=== PATIENT | female | born 2000 | race Two or more races ===

== ENCOUNTER 2019-09-19 18:33 | Emergency (ER) | payer OTHER ==
[~2019-09-19] VITALS: Ht 170.2 cm; Wt 81.6 kg
[2019-09-19 18:50] VITALS: BP 150/86
[2019-09-19] MEDS ORDERED: ACETAMINOPHEN 500 MG TABLET PO ONE (19:30)
[2019-09-19] MEDS ORDERED: AMOXICILLIN/K CLAV 875/125MG TABLET. PO ONE (19:30)
[2019-09-19] MEDS ORDERED: AMOX1TAB61 PO (19:45)
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
== END 2019-09-19 19:57 | disposition left against medical advice (07) ==
LOC: EEVIPCON 18:33 → ER 18:33
DX: O9A.211 Injury, poisoning and certain other consequences of external causes complicating pregnancy, first trimester (principal); S41.051A Open bite of right shoulder, initial encounter; S39.91XA Unspecified injury of abdomen, initial encounter; Z3A.12 12 weeks gestation of pregnancy; Y04.1XXA Assault by human bite, initial encounter; Y93.89 Activity, other specified; Y92.89 Other specified places as the place of occurrence of the external cause; Y99.8 Other external cause status
CPT/HCPCS: 99283

== ENCOUNTER → 2021-10-16 | Outpatient (CLI) | payer OTHER ==
[~2021-10-16] MED LIST: AMOX1TAB61 PO
--- NOTE | 2021-10-16 17:13 | RAD ---
EXAM: XR THORACIC SPINE 3VIEWS, XR LUMBAR SPINE 2-3V 10/16/2021 3:23 PM CLINICAL INDICATION: Back pain COMPARISON: None TECHNIQUE: AP, lateral, and swimmer's views of the thoracic spine. AP, lateral, and coned-down later al views of the lumbar spine. FINDINGS: Thoracic spine: No acute fracture. Alignment is normal. There is a 11 degrees dextroscoliosis of the thoracic spine measured from the superior endplate of T5 to the inferior plate of T10. Disc spaces ar e maintained. Lumbar spine: There are 5 nonrib-bearing lumbar vertebral bodies. There is no acute fracture. Alignme nt is normal. No scoliosis of the lumbar spine. Disc spaces and facet joints are normal. IMPRESSION: 1. 11 degrees dextroscoliosis of the thoracic spine. 2. Normal lumbar spine radiograph. Electronically signed by: Cindy Reyes MD (10/16/2021 5:10 PM) [facility]
== END ==
LOC: RAD 15:15
PROVIDERS: ATTEND Physician Assistant Medical
DX: M41.84 Other forms of scoliosis, thoracic region (principal)
CPT/HCPCS: 72072; 72100